=== PATIENT | female | born 1985 | race Caucasian/White ===

== ENCOUNTER → 2016-10-16 | Outpatient (CLI) | payer OTHER ==
[2006-09-05 06:47] VITALS: PULSE 93; TEMP 97.5
[~2016-10-16] MED LIST: IBU800 M1 PO; LEVEMIR100 U/ML SQ; PERCOCET 325 MG1 TA2 PO; PRENATAL
== END ==
LOC: SUN.DIA 11:00
DX: O24.419 Gestational diabetes mellitus in pregnancy, unspecified control (principal); O99.333 Smoking (tobacco) complicating pregnancy, third trimester; F17.210 Nicotine dependence, cigarettes, uncomplicated; Z3A.29 29 weeks gestation of pregnancy; Z71.3 Dietary counseling and surveillance
CPT/HCPCS: G0108

== ENCOUNTER 2016-12-16 13:49 | Inpatient (IN) | payer OTHER ==
[~2016-12-16] VITALS: Ht 167.6 cm; Wt 77.3 kg
[2016-12-30] VITALS (19 sets, daily range): BP systolic 96–150; BP diastolic 52–87; PULSE 71–110; TEMP 96.8–98.3
[2016-12-30 06:14] LABS: HEMOGLOBIN 12.7 g/dl (12.5-16.0); MEAN CELL VOLUME 90 fl (80.0-100.0); MEAN CORPUSCULAR HEMOGLOBIN 31 pg (27.0-31.0); MEAN CORPUSCULAR HGB CONC 35 g/dl (33.0-37.0); MEAN PLATELET VOLUME 12.5 fl (7.4-10.4); PLATELET COUNT 173 K/mm3 (130-400); RED BLOOD COUNT 4.07 M/mm3 (4.10-5.30); REDCELL DISTRIBUTION WIDTH-CV 12.9 % (11.5-14.5)
[2016-12-30] MEDS ORDERED: LEVEMIR100 U/ML SQ (06:20)
[2016-12-30] MEDS ORDERED: PRENATAL (06:20)
[2016-12-30 06:21] LABS: HEMATOCRIT 36.8 % (37.0-47.0)
[2016-12-30 06:22] LABS: ADD PATHOLOGY DIFF REVIEW NO
[2016-12-30 06:24] LABS: BAND 6 % (0-10); NEUTROPHILS 57 % (42.0-75.2); PLATELET ESTIMATE NORMAL (NORMAL); TOTAL CELLS COUNTED 100
[2016-12-31] VITALS: BP 95/53; PULSE 77; TEMP 98.8
[2016-12-31 07:24] VITALS: BP 93/59; PULSE 80; TEMP 98
[2016-12-31 07:38] LABS: BASO % 0.3 % (0.0-2.0); EOS # 0.1 (0.0-0.7); EOS % 1.1 % (0-4.0); GRAN # 7.1 (1.4-6.5); GRAN % 64.3 % (42.2-75.2); LYMPH # 2.3 (1.2-3.4); MEAN CELL VOLUME 94 fl (80.0-100.0); MEAN CORPUSCULAR HGB CONC 34 g/dl (33.0-37.0); MEAN PLATELET VOLUME 12.4 fl (7.4-10.4); MONO # 1.4 (0.1-0.6); MONO % 12.3 % (1.7-9.3); PLATELET COUNT 162 K/mm3 (130-400); RED BLOOD COUNT 3.31 M/mm3 (4.10-5.30)
[2016-12-31 07:59] LABS: HEMOGLOBIN 10.4 g/dl (12.5-16.0); MEAN CORPUSCULAR HEMOGLOBIN 31 pg (27.0-31.0)
[2016-12-31 16:42] VITALS: BP 111/63; PULSE 90; TEMP 97.5
[2016-12-31 21:10] VITALS: BP 107/60; PULSE 82; TEMP 97.7
[2017-01-01 07:15] VITALS: BP 110/80; PULSE 78; TEMP 98.1
[2017-01-01] MEDS ORDERED: PERCOCET 325 MG1 TA2 PO (08:57)
[2017-01-01] MEDS ORDERED: IBU800 M1 PO (08:57)
== END 2017-01-01 15:00 | disposition home or self-care (01) | DRG 766 ==
LOC: OB 12-30 05:25 → LDR 12-30 10:43 → OB 01-01 15:00 → EDSTATUS 01-02 10:29 → LDR 01-02 10:32 → LDRO 01-02 13:48
PROVIDERS: Student in an Organized Health Care Education/Training Program
PROC: 10D00Z1 Extraction of Products of Conception, Low, Open Approach (ICD-10-PCS; principal; 2016-12-30)
DX: O34.211 Maternal care for low transverse scar from previous cesarean delivery (principal); N85.8 Other specified noninflammatory disorders of uterus; O24.420 Gestational diabetes mellitus in childbirth, diet controlled; O99.334 Smoking (tobacco) complicating childbirth; F17.210 Nicotine dependence, cigarettes, uncomplicated; Z3A.39 39 weeks gestation of pregnancy; Z37.0 Single live birth
CPT/HCPCS: J0690; J1885; J2175; J2270; J2370; J2405; J2590; J7120

== ENCOUNTER 2018-09-14 05:30 | Inpatient (IN) | payer OTHER ==
[~2018-09-14] VITALS: Ht 167.6 cm; Wt 81.4 kg
[2018-09-14] VITALS (20 sets, daily range): BP systolic 99–122; BP diastolic 52–79; PULSE 72–108; TEMP 97.5–99
[2018-09-14] MEDS ORDERED: PROTONIX20 MG PO (06:18)
[2018-09-14 06:22] LABS: HEMOGLOBIN 12.5 g/dl (12.5-16.0); MEAN CELL VOLUME 92 fl (80.0-100.0); MEAN CORPUSCULAR HEMOGLOBIN 31 pg (27.0-31.0); MEAN CORPUSCULAR HGB CONC 34 g/dl (33.0-37.0); MEAN PLATELET VOLUME 12.4 fl (7.4-10.4); PLATELET COUNT 188 K/mm3 (130-400); REDCELL DISTRIBUTION WIDTH-CV 13.2 % (11.5-14.5)
[2018-09-14 06:23] LABS: HEMATOCRIT 36.6 % (37.0-47.0)
[2018-09-14 07:50] LABS: BAND 10 % (0-10); LYMPHOCYTE 23 % (20.0-51.0); METAMYELOCYTE 1 % (0-0); NEUTROPHILS 59 % (42.0-75.2)
[2018-09-14 07:52] LABS: PLATELET ESTIMATE NORMAL (NORMAL)
[2018-09-15 10:00] VITALS: BP 106/61; PULSE 79
[2018-09-15 17:00] VITALS: BP 99/63; PULSE 74; TEMP 98.7
[2018-09-15 20:30] VITALS: BP 99/74; PULSE 80; TEMP 98.6
[2018-09-16 09:14] VITALS: BP 116/72; PULSE 85; TEMP 98.4
[2018-09-16] MEDS ORDERED: PERCOCET 325 MG1 TA2 PO (09:57)
[2018-09-16] MEDS ORDERED: IBU800 M1 PO (09:57)
== END 2018-09-16 12:00 | disposition home or self-care (01) | DRG 788 ==
LOC: OB 05:30 → LDR 20:25 → OB 09-16 12:00
PROVIDERS: Student in an Organized Health Care Education/Training Program
PROC: 10D00Z1 Extraction of Products of Conception, Low, Open Approach (ICD-10-PCS; principal; 2018-09-14)
DX: O34.211 Maternal care for low transverse scar from previous cesarean delivery (principal); Z3A.39 39 weeks gestation of pregnancy; Z37.0 Single live birth; Z87.891 Personal history of nicotine dependence
CPT/HCPCS: J0690; J1885; J2175; J2370; J2405; J2590; J3010; J7120

== ENCOUNTER 2019-06-09 19:34 | Emergency (ER) | payer OTHER ==
[~2019-06-09] VITALS: Ht 167.6 cm; Wt 68.2 kg
[~2019-06-09 19:34] MED LIST changes: +PROTONIX20 MG PO
[2019-06-09 19:36] VITALS: TEMP 97.7
[2019-06-09 20:16] LABS: COLLECTION METHOD CLEAN CATCH
[2019-06-09 20:38] LABS: PH 6 (5-8); SQUAMOUS EPITHELIAL 0-2 /hpf; URINE APPEARANCE Clear; URINE BACTERIA None Seen /hpf; URINE BILIRUBIN Negative (NEGATIVE); URINE BLOOD Negative (NEGATIVE); URINE COLOR Yellow; URINE GLUCOSE Negative (NEGATIVE); URINE KETONE Negative (NEGATIVE); URINE LEUKOCYTE ESTERASE Negative (NEGATIVE); URINE NITRATE Negative (NEGATIVE); URINE PROTEIN(semi-quant) Negative (NEGATIVE); URINE RBC 0-2 /hpf; URINE UROBILINOGEN Negative (NEGATIVE)
[2019-06-09 21:13] LABS: BASO % 0.3 % (0.0-2.0); EOS # 0.2 (0.0-0.7); EOS % 2.2 % (0-4.0); GRAN % 48.6 % (42.2-75.2); HEMOGLOBIN 13.3 g/dl (12.5-16.0); LYMPH # 4.1 (1.2-3.4); LYMPH % 40.2 % (20.0-51.0); MEAN CELL VOLUME 91 fl (80.0-100.0); MEAN CORPUSCULAR HEMOGLOBIN 31 pg (27.0-31.0); MEAN CORPUSCULAR HGB CONC 34 g/dl (33.0-37.0); MEAN PLATELET VOLUME 11.3 fl (7.4-10.4); MONO # 0.9 (0.1-0.6); MONO % 8.5 % (1.7-9.3); PLATELET COUNT 275 K/mm3 (130-400)
[2019-06-09 21:30] LABS: ALANINE AMINOTRANSFERASE 17 U/L (9-52); ALBUMIN 4.1 gm/dL (3.5-5.0); ALKALINE PHOSPHATASE 68 U/L (50-136); ANION GAP 10 mmol/L (7-16); AST,SGOT 27 U/L (15-37); BILIRUBIN,TOTAL 0.2 mg/dL (0.0-1.0); BLOOD UREA NITROGEN 11 mg/dL (7-17); CALCIUM 8.8 mg/dL (8.4-10.2); CARBON DIOXIDE 25 mmol/L (22-30); CHLORIDE 105 mmol/L (98-107); CREATININE, serum 0.63 (0.52-1.25); GLUCOSE 112 mg/dL (74-106); LIPASE 70 U/L (23-300); POTASSIUM 3.5 mmol/L (3.4-5.0); SODIUM 140 mmol/L (137-145); TOTAL PROTEIN 7.2 gm/dL (6.4-8.2)
[2019-06-09 21:42] LABS: TROPONIN-I < 0.012 ng/mL (0.000-0.035)
[2019-06-09 21:49] VITALS: BP 119/79
[2019-06-09] MEDS ORDERED: ANTIVERT 25MG25 MG PO (22:22)
[2019-06-09] MEDS ORDERED: PROTONIX 40MG T40 MG PO (22:22)
[2019-06-09 22:40] VITALS: PULSE 78
== END 2019-06-09 22:43 | disposition home or self-care (01) ==
LOC: COL.ER 19:34
PROVIDERS: Emergency Medicine
DX: R10.13 Epigastric pain (principal); R42 Dizziness and giddiness; Z98.890 Other specified postprocedural states
CPT/HCPCS: J2405; J7030

== ENCOUNTER → 2020-02-06 | Outpatient (CLI) | payer OTHER ==
[2006-09-05 06:47] VITALS: TEMP 97.5
[~2020-02-06] MED LIST changes: +ANTIVERT 25MG25 MG PO; +PROTONIX 40MG T40 MG PO
== END ==
LOC: COL.RAD 09:45
DX: E05.90 Thyrotoxicosis, unspecified without thyrotoxic crisis or storm (principal); R59.0 Localized enlarged lymph nodes